=== PATIENT | female | born 1970 | race Caucasian/White ===

== ENCOUNTER 2020-08-16 07:49 | Day surgery (SDC) | payer OTHER ==
[~2020-08-16 07:49] MED LIST: LITHIUM CARBON600 MG PO; SERTRALINE HCL100 MG PO
== END 2020-08-16 17:50 | disposition home or self-care (01) ==
LOC: CIR.AMB 07:49
PROVIDERS: ATTEND Orthopaedic Surgery
DX: M20.12 Hallux valgus (acquired), left foot (principal); Z20.828 Contact with and (suspected) exposure to other viral communicable diseases